=== PATIENT | female | born 1980 | race Two or more races ===

== ENCOUNTER 2019-04-09 08:44 | Emergency (ER) | payer OTHER ==
[~2019-04-09] VITALS: Ht 162.6 cm; Wt 99.5 kg
[2019-04-09 08:58] VITALS: BP 148/98
--- NOTE | 2019-04-09 09:50 | NUR ---
BREAK RN: PT TO ROOM VIA
[2019-04-09] MEDS ORDERED: ONDANSETRON ODT 4 MG ONE (10:14)
[2019-04-09] MEDS ORDERED: LORazepam 1MG TABLET ONE (10:15)
[2019-04-09] MEDS ORDERED: LORazepam 1MG TABLET PO ONE (10:30)
[2019-04-09] MEDS ORDERED: ONDANSETRON ODT 8 MG PO ONE (10:30)
== END 2019-04-09 11:55 | disposition home or self-care (01) ==
LOC: ED 11:13
DX: S16.1XXA Strain of muscle, fascia and tendon at neck level, initial encounter (principal); S09.90XA Unspecified injury of head, initial encounter; V00.131A Fall from skateboard, initial encounter; Y93.51 Activity, roller skating (inline) and skateboarding; Y92.328 Other athletic field as the place of occurrence of the external cause; Y99.8 Other external cause status
CPT/HCPCS: 70450; 72125; 99284; Q0162